=== PATIENT | female | born 1945 | race Caucasian/White ===

== ENCOUNTER 2017-02-12 14:18 | Emergency (ER) | payer MEDICARE, OTHER ==
[2017-02-12 15:25] LABS: BASOPHIL 0.8 % (0-2); HCT 40.4 % (37.0-47.0); HGB 13.5 g/dl (12.5-16.0); LYMPHOCYTE 33.3 % (15-48); MCH 28.9 pg (25.0-31.0); MCHC 33.4 g/dL (32.0-36.0); MCV 86.5 fL (78.0-100.0); MONOCYTE 7.8 % (0-12); NEUTROPHIL 53.1 % (41-80); PLT 173 K/uL (150-400); RBC 4.67 M/uL (4.20-5.40); RDW 13.8 % (11.5-14.0); WBC 6.5 K/uL (4.0-10.5)
[2017-02-12 16:11] LABS: INR 1.05 (0.9-1.2); PROTHROMBIN TIME 13.3 SECONDS (11.7-14.0); PTT 20.6 SECONDS (23.2-31.4)
[2017-02-12 16:28] LABS: ALBUMIN 3.7 g/dL (3.4-4.8); BILIRUBIN - TOTAL 0.3 mg/dL (0.1-1.0); CREATININE 0.9 mg/dL (0.5-1.0); GLOBULIN (CALCULATION) 2.7 g/dL (2.2-4.2); POTASSIUM 3.8 mmol/L (3.5-5.1); TOTAL PROTEIN 6.4 g/dL (6.4-8.3)
[2017-02-12 16:30] LABS: CKMB 2.92 ng/mL (0.97-4.94); MYOGLOBIN 44 ng/mL (26-65); TROPONIN T < 0.010 ng/mL
== END 2017-02-12 16:51 | disposition other institution (70) ==
LOC: FER 14:18
PROVIDERS: Internal Medicine
DX: G93.9 Disorder of brain, unspecified (principal); I50.9 Heart failure, unspecified; E11.22 Type 2 diabetes mellitus with diabetic chronic kidney disease; N18.9 Chronic kidney disease, unspecified; G89.29 Other chronic pain; J44.9 Chronic obstructive pulmonary disease, unspecified; K21.9 Gastro-esophageal reflux disease without esophagitis; Z88.0 Allergy status to penicillin; Z88.6 Allergy status to analgesic agent; Z91.018 Allergy to other foods; Z91.040 Latex allergy status
CPT/HCPCS: 36415; 70450; 71010; 80053; 80061; 82550; 82553; 83874; 84484; 85025; 85610; 85730; 93005; J1100

== ENCOUNTER 2020-11-03 12:41 | Inpatient (IN) | payer OTHER ==
[~2020-11-03 12:41] MED LIST: BUMEX1 MG PO; CALCIUM600 MG PO; CIPRO500 MG PO; COZAAR 25MG TAB25 MG PO; DITROPAN5 MG PO; DOK100 MG PO; FUROSEMIDE20 MG PO; HUMALOG KWIKPEN; K-DUR20 MEQ PO; KEFLEX250 MG PO; LANTUS **100 UNITS/ SC; LASIX20 MG PO; MIRALAX17 GM PO; NORVASC5 MG PO; NYSTATIN 30GM C30 GM TD; OXY-IR 5MG5 MG PO; PRAVACHOL20 MG PO; PREDNISONE2.5 MG PO; PREDNISONE5 MG PO; PREMARIN V45 GM/TUBE TOP; PREMARIN VG; TOPIRAMATE50 MG PO; ZANTAC150 MG PO; ZOFRAN8 MG PO
[2020-11-03 13:55] LABS: BASOPHIL 0.4 % (0-2); EOSINOPHIL 0.9 % (0-7); HCT 38.8 % (37.0-47.0); HGB 12.4 g/dl (12.5-16.0); LYMPHOCYTE 20.8 % (15-48); MCH 27.5 pg (25.0-31.0); MPV 11.9 fL (6.0-9.5); NEUTROPHIL 73.8 % (41-80); NRBC 0.4; PLT 186 K/uL (150-400); RBC 4.51 M/uL (4.20-5.40); RDW 14.8 % (11.5-14.0); WBC 8.2 K/uL (4.0-10.5)
[2020-11-03 14:01] LABS: BILIRUBIN NEGATIVE (NEGATIVE); BLOOD NEGATIVE Ery/uL (NEGATIVE); CLARITY CLEAR (CLEAR); COLOR YELLOW (YELLOW); GLUCOSE (U) 1+ mg/dL (NORMAL); LEUKOCYTES 1+ Leu/uL (NEGATIVE); NITRITE NEGATIVE (NEGATIVE); PROTEIN NEGATIVE (NEGATIVE); UROBILINOGEN 0.2 mg/dL (0.2-1.0); pH 5.5 (5.0-9.0)
[2020-11-03 14:04] LABS: BARBITURATES NEGATIVE (NEGATIVE); ECSTASY (MDMA) NEGATIVE (NEGATIVE); MARIJUANA (THC) NEGATIVE (NEGATIVE); METHADONE NEGATIVE (NEGATIVE); OPIATES NEGATIVE (NEGATIVE)
[2020-11-03 14:05] LABS: AMPHETAMINES NEGATIVE (NEGATIVE); OXYCODONE POSITIVE (NEGATIVE)
[2020-11-03 14:18] LABS: BACTERIA 4+
[2020-11-03 14:19] LABS: SQUAMOUS EPITHELIAL CELLS RARE; URINARY RBC RARE
[2020-11-03 14:36] LABS: ALBUMIN 3.7 g/dL (3.4-5.0); ALKALINE PHOSHATASE 97 U/L (46-116); ALT 16 U/L (14-59); AST 26 U/L (15-37); BILIRUBIN - TOTAL 0.5 mg/dL (0.2-1.0); BUN 31 mg/dL (7-18); BUN/CREAT RATIO (CALC) 15.1 RATIO; CHLORIDE 99 mmol/L (98-107); CO2 (BICARBONATE) 22 mmol/L (21-32); CREATININE 2.05 mg/dL (0.51-0.95); GLOBULIN (CALCULATION) 3.6 g/dL; GLUCOSE 282 mg/dL (74-106); POTASSIUM 3.7 mmol/L (3.5-5.1); TOTAL PROTEIN 7.3 g/dL (6.4-8.2)
[2020-11-03 15:21] LABS: INR 1.2 (0.9-1.2); PROTHROMBIN TIME 14.4 SECONDS (11.4-13.6); PTT 26.4 SECONDS (22.2-34.7)
--- NOTE | 2020-11-03 19:50 | NUR ---
PT ARRIVED TO UNIT PLACED ON SEED TESTER. UPON ASSESSMENT PT PUPILS WERE NON REACTIVE, PROPERTY CLAIMS MANAGER NOTIFIED AND STATED THIS IS DUE TO THE MEDICATIONS GRADY WERE RECEIVED IN THE ER
[2020-11-03] MEDS ORDERED: NORVASC5 MG PO (20:11)
[2020-11-03] MEDS ORDERED: LOSARTAN POTASS25 MG PO (20:12)
[2020-11-03] MEDS ORDERED: LANTUS SOL100 UNIT/1 IJ (20:13)
[2020-11-03] MEDS ORDERED: GLUCAGON EMERGEN1 MG IJ (20:14)
[2020-11-03] MEDS ORDERED: CALCIUM + D3 E1 EACH PO (20:15)
[2020-11-03] MEDS ORDERED: NYSTATIN 30GM C30 GM TOP (20:16)
[2020-11-03] MEDS ORDERED: DOK100 MG PO (20:16)
[2020-11-03] MEDS ORDERED: PRAVASTATIN SOD10 MG PO (20:17)
[2020-11-03] MEDS ORDERED: OXYCODONE HCL10 MG PO (20:18)
[2020-11-03] MEDS ORDERED: FAMOTIDINE40 MG PO (20:18)
[2020-11-03] MEDS ORDERED: CILOSTAZOL100 MG PO (20:19)
[2020-11-03] MEDS ORDERED: PRILOSEC20 MG PO (20:19)
[2020-11-03] MEDS ORDERED: HUMALOG MI100 UNIT/4 IJ (20:25)
--- NOTE | 2020-11-04 04:31 | NUR ---
UPON MORNING ASSESSMENT, PT PUPILS ARE FIED AND DO NOT REACT FOLLOW UP MANAGER NOTIFIED, WILL CONTINUE TO MONITOR
[2020-11-04 05:53] LABS: BASOPHIL 0.4 % (0-2); EOSINOPHIL 1.7 % (0-7); HCT 32.4 % (37.0-47.0); HGB 10.5 g/dl (12.5-16.0); LYMPHOCYTE 29.6 % (15-48); MCH 28.2 pg (25.0-31.0); MCHC 32.4 g/dL (32.0-36.0); MCV 87.1 fL (78.0-100.0); MONOCYTE 6.6 % (0-12); MPV 11.5 fL (6.0-9.5); NEUTROPHIL 61.5 % (41-80); NRBC 0; PLT 160 K/uL (150-400); RBC 3.72 M/uL (4.20-5.40); RDW 15.1 % (11.5-14.0); WBC 5.4 K/uL (4.0-10.5)
[2020-11-04 06:12] LABS: BUN/CREAT RATIO (CALC) 16.2 RATIO; CREATININE 1.79 mg/dL (0.51-0.95); POTASSIUM 3.3 mmol/L (3.5-5.1)
--- NOTE | 2020-11-04 06:19 | NUR ---
PT TROPONIN WAS 0.183, NOTIFIED WATCH ADJUSTER NO NEW ORDERS
--- NOTE | 2020-11-04 06:29 | NUR ---
PT HR JUMPED UP TO 145 TWICE AND CAME RIGHT BACK DOWN TO 90s, CALLED TO OCCUPATIONAL SAFETY AND HEALTH MANAGER- NO NEW ORDERS GIVEN. WILL CONTINUE TO MONITOR
--- NOTE | 2020-11-04 14:00 | NUR ---
PT RESPORTS SHE NEEDS HELP WIHT ADL'S THAT SHE LIVES WITH SPOUSE ; PLEASE ADVISE OF DISCHARGE NEEDS
[2020-11-05 06:26] LABS: BASOPHIL 0.4 % (0-2); EOSINOPHIL 3.7 % (0-7); HCT 38.5 % (37.0-47.0); LYMPHOCYTE 35.9 % (15-48); MCHC 31.2 g/dL (32.0-36.0); MCV 89.7 fL (78.0-100.0); MONOCYTE 7.5 % (0-12); MPV 11.4 fL (6.0-9.5); NEUTROPHIL 52.4 % (41-80); NRBC 0; RBC 4.29 M/uL (4.20-5.40); RDW 15.5 % (11.5-14.0); WBC 7.2 K/uL (4.0-10.5)
[2020-11-05 06:35] LABS: BUN/CREAT RATIO (CALC) 16.9 RATIO; CREATININE 1.3 mg/dL (0.51-0.95); POTASSIUM 3.8 mmol/L (3.5-5.1)
[2020-11-05 07:11] LABS: PLT 139 K/uL (150-400)
[2020-11-06 06:47] LABS: BASOPHIL 0.4 % (0-2); EOSINOPHIL 2.8 % (0-7); HCT 33.3 % (37.0-47.0); HGB 10.6 g/dl (12.5-16.0); LYMPHOCYTE 25.4 % (15-48); MCHC 31.8 g/dL (32.0-36.0); MCV 87.9 fL (78.0-100.0); MPV 11.6 fL (6.0-9.5); NEUTROPHIL 63.1 % (41-80); NRBC 0; PLT 153 K/uL (150-400); RBC 3.79 M/uL (4.20-5.40); RDW 15.1 % (11.5-14.0)
[2020-11-06 07:11] LABS: BUN/CREAT RATIO (CALC) 17.9 RATIO; CREATININE 1.06 mg/dL (0.51-0.95); POTASSIUM 3.2 mmol/L (3.5-5.1)
--- NOTE | 2020-11-06 17:10 | NUR ---
11/06/20 Ms. Aguila is . She lives with her son and "adopted son". He has a rw, 3in1, s. chair, and walk-in tub. A referral was made to [facility] per patient choice; affliation explained. Discharge is anticipated for 11/07/20.
[2020-11-07 06:03] LABS: BASOPHIL 0.5 % (0-2); EOSINOPHIL 5.3 % (0-7); HCT 32.9 % (37.0-47.0); HGB 10.5 g/dl (12.5-16.0); LYMPHOCYTE 28.4 % (15-48); MCH 28.2 pg (25.0-31.0); MCHC 31.9 g/dL (32.0-36.0); MCV 88.2 fL (78.0-100.0); MONOCYTE 6.9 % (0-12); MPV 11.9 fL (6.0-9.5); NEUTROPHIL 58.7 % (41-80); NRBC 0; PLT 150 K/uL (150-400); RBC 3.73 M/uL (4.20-5.40); RDW 15.2 % (11.5-14.0); WBC 6.6 K/uL (4.0-10.5)
[2020-11-07 06:19] LABS: BUN/CREAT RATIO (CALC) 18.4 RATIO; CREATININE 0.98 mg/dL (0.51-0.95); MAGNESIUM 1.9 mg/dL (1.8-2.4); PHOSPHORUS 1.4 mg/dL (2.6-4.7); POTASSIUM 4.4 mmol/L (3.5-5.1)
[2020-11-07] MEDS ORDERED: CEFDINIR300 MG PO (15:46)
[2020-11-07] MEDS ORDERED: SILVER SULFADIA85 GM TOP (15:46)
[2020-11-07] MEDS ORDERED: TOPROL XL 50 MG50 MG PO (15:46)
[2020-11-08] MEDS ORDERED: OXYCODONE HCL10 MG PO (18:58)
== END 2020-11-07 16:28 | disposition home health service (06) | DRG 871 ==
LOC: FER 12:41 → FTCU 16:23
PROVIDERS: Emergency Medicine; Internal Medicine; ADMIT Internal Medicine
DX: A41.51 Sepsis due to Escherichia coli [E. coli] (principal); G92 Toxic encephalopathy; I21.A1 Myocardial infarction type 2; N30.00 Acute cystitis without hematuria; N17.9 Acute kidney failure, unspecified; N18.30 Chronic kidney disease, stage 3 unspecified; E11.22 Type 2 diabetes mellitus with diabetic chronic kidney disease; I12.9 Hypertensive chronic kidney disease with stage 1 through stage 4 chronic kidney disease, or unspecified chronic kidney disease; I48.0 Paroxysmal atrial fibrillation; K59.00 Constipation, unspecified; Z20.822 Contact with and (suspected) exposure to COVID-19; K21.9 Gastro-esophageal reflux disease without esophagitis; Z88.0 Allergy status to penicillin; Z88.8 Allergy status to other drugs, medicaments and biological substances
CPT/HCPCS: 36415; 36600; 70450; 71250; 80048; 80053; 80305; 81001; 82140; 82550; 82803; 82962; 83036; 83605; 83735; 84100; 84145; 84484; 85025; 85610; 85730; 87040; 87076; 87088; 87186; 93005; 96372; G0480; J0692; J1630; J1650; J2060; J2405; J2543; J3370; J7030; J7050; U0002

== ENCOUNTER 2020-11-08 13:36 | Inpatient (IN) | payer OTHER ==
[~2020-11-08 13:36] MED LIST changes: +CALCIUM + D3 E1 EACH PO; +CEFDINIR300 MG PO; +CILOSTAZOL100 MG PO; +FAMOTIDINE40 MG PO; +GLUCAGON EMERGEN1 MG IJ; +HUMALOG MI100 UNIT/4 IJ; +LANTUS SOL100 UNIT/1 IJ; +LOSARTAN POTASS25 MG PO; +NYSTATIN 30GM C30 GM TOP; +OXYCODONE HCL10 MG PO; +PRAVASTATIN SOD10 MG PO; +PRILOSEC20 MG PO; +SILVER SULFADIA85 GM TOP; +TOPROL XL 50 MG50 MG PO
[2020-11-08 14:19] LABS: BASOPHIL 0.5 % (0-2); EOSINOPHIL 4.8 % (0-7); HCT 40.9 % (37.0-47.0); LYMPHOCYTE 19.6 % (15-48); MCH 28.6 pg (25.0-31.0); MCHC 31.8 g/dL (32.0-36.0); MCV 89.9 fL (78.0-100.0); MONOCYTE 6.4 % (0-12); MPV 11.3 fL (6.0-9.5); NEUTROPHIL 68.6 % (41-80); NRBC 0; PLT 198 K/uL (150-400); RBC 4.55 M/uL (4.20-5.40); RDW 15.4 % (11.5-14.0)
[2020-11-08 14:34] LABS: INR 0.99 (0.9-1.2); PROTHROMBIN TIME 12.4 SECONDS (11.4-13.6); PTT 26.4 SECONDS (22.2-34.7)
[2020-11-08 15:26] LABS: BILIRUBIN NEGATIVE (NEGATIVE); BLOOD TRACE-INTACT Ery/uL (NEGATIVE); CLARITY CLEAR (CLEAR); COLOR YELLOW (YELLOW); GLUCOSE (U) TRACE mg/dL (NORMAL); LEUKOCYTES NEGATIVE Leu/uL (NEGATIVE); NITRITE NEGATIVE (NEGATIVE); PROTEIN NEGATIVE (NEGATIVE); SPECIFIC GRAVITY 1.015 (1.001-1.030); UROBILINOGEN 0.2 mg/dL (0.2-1.0)
[2020-11-08 15:42] LABS: LACTIC ACID 1.6 mmol/L (0.4-1.9)
[2020-11-08 15:43] LABS: ALBUMIN 2.6 g/dL (3.4-5.0); BILIRUBIN - TOTAL 0.3 mg/dL (0.2-1.0); CREATININE 0.89 mg/dL (0.51-0.95); GLOBULIN (CALCULATION) 3.2 g/dL; MAGNESIUM 2.1 mg/dL (1.8-2.4); POTASSIUM 3.4 mmol/L (3.5-5.1); TOTAL PROTEIN 5.8 g/dL (6.4-8.2)
[2020-11-08 15:45] LABS: URINARY RBC RARE
[2020-11-08 15:57] LABS: PRO-BNP 2779 pg/mL (<125)
[2020-11-08] MEDS ORDERED: OXYCODONE HCL10 MG PO (18:58)
[2020-11-09 06:41] LABS: BASOPHIL 0.7 % (0-2); EOSINOPHIL 6.3 % (0-7); HCT 34.6 % (37.0-47.0); LYMPHOCYTE 31.1 % (15-48); MCHC 31.8 g/dL (32.0-36.0); MONOCYTE 7.7 % (0-12); MPV 11.6 fL (6.0-9.5); NEUTROPHIL 53.7 % (41-80); NRBC 0; PLT 178 K/uL (150-400); RBC 3.93 M/uL (4.20-5.40); RDW 15.2 % (11.5-14.0); WBC 5.6 K/uL (4.0-10.5)
[2020-11-09 07:38] LABS: ALBUMIN 2.4 g/dL (3.4-5.0); BILIRUBIN - TOTAL 0.2 mg/dL (0.2-1.0); BUN/CREAT RATIO (CALC) 20.8 RATIO; CREATININE 0.72 mg/dL (0.51-0.95); GLOBULIN (CALCULATION) 3.1 g/dL; MAGNESIUM 1.9 mg/dL (1.8-2.4); POTASSIUM 3.5 mmol/L (3.5-5.1); TOTAL PROTEIN 5.5 g/dL (6.4-8.2)
[2020-11-10 06:26] LABS: BASOPHIL 0.6 % (0-2); EOSINOPHIL 4.8 % (0-7); HCT 33.2 % (37.0-47.0); HGB 10.9 g/dl (12.5-16.0); LYMPHOCYTE 36.8 % (15-48); MCH 28.9 pg (25.0-31.0); MCHC 32.8 g/dL (32.0-36.0); MCV 88.1 fL (78.0-100.0); MONOCYTE 6.9 % (0-12); MPV 11.4 fL (6.0-9.5); NEUTROPHIL 50.7 % (41-80); NRBC 0; PLT 185 K/uL (150-400); RBC 3.77 M/uL (4.20-5.40); RDW 15.5 % (11.5-14.0); WBC 6.7 K/uL (4.0-10.5)
[2020-11-10 07:04] LABS: BUN/CREAT RATIO (CALC) 17.2 RATIO; CREATININE 0.93 mg/dL (0.51-0.95); MAGNESIUM 1.7 mg/dL (1.8-2.4); PHOSPHORUS 2.2 mg/dL (2.6-4.7); POTASSIUM 3.6 mmol/L (3.5-5.1)
--- NOTE | 2020-11-10 14:34 | NUR ---
11/10/20 Ms. Aguila lives at home with her 12 y/o adopted son. The 12 y/o is currently staying with Ms. Aguila's granddaughter. Her son, Rolando Aguila, lives across the street. Ms. Aguila's sister and her BF were living in the home. Ms. Aguila reports that her sister and the BF have moved and the locks have been changed on the door. _ Ms. Aguila has a rollator, rw which is too tall for her 5' stature, 3in1, and s. chair. - She is current with [facility] and wishes to continue with their services. Please call [facility] when patient is discharged at [phone]. - A rwferral was made to [facility] for [facility].
[2020-11-11 05:38] LABS: BASOPHIL 0.8 % (0-2); EOSINOPHIL 5.4 % (0-7); HCT 34.8 % (37.0-47.0); HGB 11.2 g/dl (12.5-16.0); LYMPHOCYTE 40.1 % (15-48); MCH 28.1 pg (25.0-31.0); MCHC 32.2 g/dL (32.0-36.0); MCV 87.4 fL (78.0-100.0); MONOCYTE 8.2 % (0-12); MPV 11.3 fL (6.0-9.5); NEUTROPHIL 45.4 % (41-80); NRBC 0; PLT 206 K/uL (150-400); RBC 3.98 M/uL (4.20-5.40); RDW 15.3 % (11.5-14.0); WBC 7.1 K/uL (4.0-10.5)
[2020-11-11 05:59] LABS: BUN/CREAT RATIO (CALC) 17.3 RATIO; CREATININE 1.04 mg/dL (0.51-0.95); PHOSPHORUS 2.7 mg/dL (2.6-4.7); POTASSIUM 3.9 mmol/L (3.5-5.1)
[2020-11-11] MEDS ORDERED: METFORMIN HCL500 MG PO (10:14)
[2020-11-11] MEDS ORDERED: DIGITEK125 MCG PO (10:14)
[2020-11-11] MEDS ORDERED: K-DUR20 MEQ PO (10:14)
[2020-11-11] MEDS ORDERED: LASIX20 MG PO (10:14)
== END 2020-11-11 14:00 | disposition home health service (06) | DRG 280 ==
LOC: FER 13:36 → FMS 16:38
PROVIDERS: Emergency Medicine; ADMIT Internal Medicine
DX: I48.0 Paroxysmal atrial fibrillation (principal); J81.0 Acute pulmonary edema; I21.A1 Myocardial infarction type 2; G93.41 Metabolic encephalopathy; J90 Pleural effusion, not elsewhere classified; I13.0 Hypertensive heart and chronic kidney disease with heart failure and stage 1 through stage 4 chronic kidney disease, or unspecified chronic kidney disease; I50.30 Unspecified diastolic (congestive) heart failure; E83.39 Other disorders of phosphorus metabolism; E11.43 Type 2 diabetes mellitus with diabetic autonomic (poly)neuropathy; K31.84 Gastroparesis; N18.30 Chronic kidney disease, stage 3 unspecified; E11.22 Type 2 diabetes mellitus with diabetic chronic kidney disease; I73.9 Peripheral vascular disease, unspecified; K21.9 Gastro-esophageal reflux disease without esophagitis; Z87.891 Personal history of nicotine dependence; Z88.0 Allergy status to penicillin; Z91.040 Latex allergy status; Z88.8 Allergy status to other drugs, medicaments and biological substances; Z91.018 Allergy to other foods; Z79.4 Long term (current) use of insulin; Z20.822 Contact with and (suspected) exposure to COVID-19
CPT/HCPCS: 36415; 36600; 70450; 71045; 71046; 71250; 80048; 80053; 80162; 81001; 82550; 82607; 82803; 82962; 83036; 83605; 83735; 83880; 84100; 84145; 84443; 84484; 85025; 85610; 85730; 87040; 87045; 87046; 87205; 93005; 94010; 94760; 94762; 97116; 97162; 97166; 97530-GP; 97535; J1160; J1650; J1940; J2405; J3475; J7040; J7050; U0002

== ENCOUNTER 2020-12-12 15:05 | Inpatient (IN) | payer OTHER ==
[~2020-12-12 15:05] MED LIST changes: +DIGITEK125 MCG PO; +METFORMIN HCL500 MG PO
[2020-12-12 18:25] LABS: BASOPHIL 0.7 % (0-2); EOSINOPHIL 4.2 % (0-7); HCT 34.6 % (37.0-47.0); HGB 10.6 g/dl (12.5-16.0); LYMPHOCYTE 26.7 % (15-48); MCH 28.5 pg (25.0-31.0); MCHC 30.6 g/dL (32.0-36.0); MPV 11.3 fL (6.0-9.5); NEUTROPHIL 58.1 % (41-80); NRBC 0; PLT 251 K/uL (150-400); RBC 3.72 M/uL (4.20-5.40); WBC 7.7 K/uL (4.0-10.5)
[2020-12-12 18:30] LABS: INR 1.09 (0.9-1.2); PROTHROMBIN TIME 13.4 SECONDS (11.4-13.6); PTT 25.9 SECONDS (22.2-34.7)
[2020-12-12 18:52] LABS: ALBUMIN 3.1 g/dL (3.4-5.0); BILIRUBIN - TOTAL 0.5 mg/dL (0.2-1.0); BUN/CREAT RATIO (CALC) 19.1 RATIO; C-REACTIVE PROTEIN 0.5 mg/dL (<=0.90); CREATININE 0.89 mg/dL (0.51-0.95); GLOBULIN (CALCULATION) 3.7 g/dL; MAGNESIUM 1.8 mg/dL (1.8-2.4); POTASSIUM 3.9 mmol/L (3.5-5.1); TOTAL PROTEIN 6.8 g/dL (6.4-8.2)
[2020-12-12] MEDS ORDERED: CILOSTAZOL100 MG PO (22:53)
[2020-12-12 22:55] LABS: BILIRUBIN NEGATIVE (NEGATIVE); BLOOD NEGATIVE Ery/uL (NEGATIVE); CLARITY CLEAR (CLEAR); COLOR YELLOW (YELLOW); GLUCOSE (U) NORMAL (NORMAL); LEUKOCYTES NEGATIVE Leu/uL (NEGATIVE); NITRITE NEGATIVE (NEGATIVE); PROTEIN NEGATIVE (NEGATIVE); SPECIFIC GRAVITY 1.015 (1.001-1.030); UROBILINOGEN 0.2 mg/dL (0.2-1.0); pH 7.5 (5.0-9.0)
[2020-12-12] MEDS ORDERED: LEXAPRO5 MG PO (22:56)
[2020-12-12] MEDS ORDERED: PREDNISONE 10MG10 MG PO (22:57)
--- NOTE | 2020-12-12 23:28 | NUR ---
PT GLUCOSE IS NOW 131, CALLED TO CHILD WELFARE CASEWORKER, WILL RE-CHECK IN 2 HRS
[2020-12-13 06:33] LABS: BASOPHIL 0.5 % (0-2); EOSINOPHIL 2.6 % (0-7); HCT 32.6 % (37.0-47.0); HGB 10.5 g/dl (12.5-16.0); LYMPHOCYTE 25.2 % (15-48); MCHC 32.2 g/dL (32.0-36.0); MCV 90.1 fL (78.0-100.0); MONOCYTE 9.5 % (0-12); MPV 10.4 fL (6.0-9.5); NEUTROPHIL 61.9 % (41-80); NRBC 0; PLT 232 K/uL (150-400); RBC 3.62 M/uL (4.20-5.40); RDW 14.6 % (11.5-14.0); WBC 6.5 K/uL (4.0-10.5)
[2020-12-13 06:58] LABS: ALBUMIN 2.8 g/dL (3.4-5.0); BILIRUBIN - TOTAL 0.6 mg/dL (0.2-1.0); BUN/CREAT RATIO (CALC) 16.2 RATIO; CREATININE 0.8 mg/dL (0.51-0.95); GLOBULIN (CALCULATION) 2.9 g/dL; MAGNESIUM 1.5 mg/dL (1.8-2.4); POTASSIUM 4.1 mmol/L (3.5-5.1); TOTAL PROTEIN 5.7 g/dL (6.4-8.2)
--- NOTE | 2020-12-13 14:29 | NUR ---
REFERRAL RECEIVED STATING NEEDS MORE HOME CARE VS. PLACEMENT A LAST RESORT. MET WITH PT AND HER SON LINDSAY CHRISTINA. PT. RESIDES WITH HER SON AND ALSO AN ADOPTED 12 YEAR OLD SON. PT. IS CURRENT WITH [facility] . SHE HAS A ROLLING WALKER. MAY NEED A 3/1 AND HOME O2. EXPLAINED TO SON THAT TO HAVE A PRIVATE SITTER OR AN AGENCY LIKE [employer] WOULD ALL BE PRIVATE PAY. ALSO, ADVISED PT. SON OF [facility] FOR THE AGED. BUT A REFERAL WOULD HAVE TO BE MADE AND THEY COULD POSSIBLY GET 20 HOURS A WEEK OF ASSISTANCE. ALSO, DISCUSSED THE POSSIBLITY OF GOING TO REHAB, BUT PT. SON DOES NOT WANT TO CONSIDER THAT OPTION AT THIS TIME. THE SON AND HIS MOTHER WILL DISCUSS OPTIONS. ADVISED SON AND PT. THAT [facility] WILL BE HELPING THEM I WILL BE ON LEAVE.
--- NOTE | 2020-12-13 14:39 | NUR ---
ADVISED NURSERUSSELL OF THE INFORMATION GIVEN FAMILY.
--- NOTE | 2020-12-13 14:56 | NUR ---
NOTIFICATION OF HOSPITALIZATION SENT TO [facility] THROUGH AVAILIY.
[2020-12-14 05:58] LABS: BASOPHIL 0.5 % (0-2); EOSINOPHIL 3.4 % (0-7); HCT 35.3 % (37.0-47.0); HGB 11.2 g/dl (12.5-16.0); LYMPHOCYTE 32.5 % (15-48); MCH 28.8 pg (25.0-31.0); MCHC 31.7 g/dL (32.0-36.0); MCV 90.7 fL (78.0-100.0); MONOCYTE 8.2 % (0-12); MPV 11.4 fL (6.0-9.5); NEUTROPHIL 55.1 % (41-80); NRBC 0; PLT 205 K/uL (150-400); RBC 3.89 M/uL (4.20-5.40); RDW 14.6 % (11.5-14.0); WBC 7.8 K/uL (4.0-10.5)
[2020-12-14 06:08] LABS: BUN/CREAT RATIO (CALC) 14.8 RATIO; CREATININE 1.08 mg/dL (0.51-0.95); MAGNESIUM 1.8 mg/dL (1.8-2.4); POTASSIUM 4.5 mmol/L (3.5-5.1)
[2020-12-15 06:38] LABS: BASOPHIL 0.5 % (0-2); EOSINOPHIL 3.4 % (0-7); HCT 37.6 % (37.0-47.0); HGB 12.2 g/dl (12.5-16.0); LYMPHOCYTE 18.4 % (15-48); MCH 29.1 pg (25.0-31.0); MCHC 32.4 g/dL (32.0-36.0); MCV 89.7 fL (78.0-100.0); MONOCYTE 6.3 % (0-12); MPV 11.2 fL (6.0-9.5); NEUTROPHIL 70.9 % (41-80); NRBC 0; PLT 251 K/uL (150-400); RBC 4.19 M/uL (4.20-5.40); RDW 14.3 % (11.5-14.0); WBC 11.4 K/uL (4.0-10.5)
[2020-12-15 06:54] LABS: BUN/CREAT RATIO (CALC) 20.2 RATIO; CREATININE 0.99 mg/dL (0.51-0.95)
--- NOTE | 2020-12-15 14:38 | NUR ---
12/15 Discharge is anticipated for . Please notify [facility] at [phone]. )2 has been ordered from [facility].
[2020-12-16] MEDS ORDERED: LASIX40 MG PO (10:35)
--- NOTE | 2020-12-16 12:31 | NUR ---
PT DISCHARGED WITH SON VIA WHEELCHAIR. SON IS POA. PT IS RECIEVING HOME HEALTH. RN ATTEMPTED TO NOTIFY HOME HEALTH BUT LEFT MESSAGE. TELE REMOVED, IV DC'D.
== END 2020-12-16 13:00 | disposition home health service (06) | DRG 291 ==
LOC: FER 15:05 → FICU 21:11 → FTCU 21:11 → FICU 21:11 → FTCU 12-14 08:57
PROVIDERS: Emergency Medicine; Nurse Practitioner; Nurse Practitioner Family; ADMIT Internal Medicine
DX: I13.0 Hypertensive heart and chronic kidney disease with heart failure and stage 1 through stage 4 chronic kidney disease, or unspecified chronic kidney disease (principal); I50.33 Acute on chronic diastolic (congestive) heart failure; J18.9 Pneumonia, unspecified organism; E11.51 Type 2 diabetes mellitus with diabetic peripheral angiopathy without gangrene; E11.43 Type 2 diabetes mellitus with diabetic autonomic (poly)neuropathy; Z20.822 Contact with and (suspected) exposure to COVID-19; K31.84 Gastroparesis; N18.30 Chronic kidney disease, stage 3 unspecified; I48.0 Paroxysmal atrial fibrillation; G47.33 Obstructive sleep apnea (adult) (pediatric); I25.10 Atherosclerotic heart disease of native coronary artery without angina pectoris; K21.9 Gastro-esophageal reflux disease without esophagitis; I27.20 Pulmonary hypertension, unspecified; K59.00 Constipation, unspecified; Z90.49 Acquired absence of other specified parts of digestive tract; Z98.51 Tubal ligation status; Z88.0 Allergy status to penicillin; Z88.1 Allergy status to other antibiotic agents; Z88.8 Allergy status to other drugs, medicaments and biological substances; Z91.040 Latex allergy status; Z79.4 Long term (current) use of insulin; Z79.899 Other long term (current) drug therapy; Z87.891 Personal history of nicotine dependence; Z98.41 Cataract extraction status, right eye; Z98.42 Cataract extraction status, left eye; Z87.440 Personal history of urinary (tract) infections; I25.2 Old myocardial infarction
CPT/HCPCS: 36415; 36600; 71045; 80048; 80053; 80162; 81003; 82728; 82803; 82962; 83615; 83735; 83880; 84145; 84443; 84484; 85025; 85610; 85730; 86140; 93005; 94010; 94760; 94762; 97110; 97162; 97166; 97530; 97530-GP; 97535; J0360; J0456; J0696; J0780; J1650; J1940; J1956; J2405; J3475; J7050; U0002

== ENCOUNTER 2022-01-23 17:48 | Inpatient (IN) | payer OTHER ==
[~2022-01-23] VITALS: Ht 154.9 cm; Wt 61.7 kg
[~2022-01-23 17:48] MED LIST changes: +LASIX40 MG PO; +LEVAQUIN750 MG PO; +LEXAPRO5 MG PO; +PREDNISONE 10MG10 MG PO; +VIBRAMYCIN100 MG PO
[2022-01-23 19:57] LABS: BASOPHIL 0.7 % (0-2); EOSINOPHIL 3.6 % (0-7); HCT 43.2 % (37.0-47.0); HGB 13.4 g/dl (12.5-16.0); MCH 27.8 pg (25.0-31.0); MCV 89.6 fL (78.0-100.0); MONOCYTE 6.3 % (0-12); MPV 11.1 fL (6.0-9.5); NEUTROPHIL 70.2 % (41-80); NRBC 0; PLT 199 K/uL (150-400); RBC 4.82 M/uL (4.20-5.40); RDW 13.2 % (11.5-14.0); WBC 10.3 K/uL (4.0-10.5)
[2022-01-23 20:15] LABS: ALBUMIN 3.6 g/dL (3.4-5.0); BILIRUBIN - TOTAL 0.4 mg/dL (0.2-1.0); BUN/CREAT RATIO (CALC) 25.8 RATIO; CREATININE 1.32 mg/dL (0.51-0.95); GLOBULIN (CALCULATION) 4.3 g/dL; TOTAL PROTEIN 7.9 g/dL (6.4-8.2)
[2022-01-23 20:18] LABS: LACTIC ACID 1.6 mmol/L (0.4-1.9)
[2022-01-23 20:37] LABS: BILIRUBIN NEGATIVE (NEGATIVE); BLOOD TRACE-INTACT Ery/uL (NEGATIVE); COLOR YELLOW (YELLOW); GLUCOSE (U) TRACE mg/dL (NORMAL); LEUKOCYTES 3+ Leu/uL (NEGATIVE); NITRITE NEGATIVE (NEGATIVE); PROTEIN 2+ mg/dL (NEGATIVE); UROBILINOGEN 0.2 mg/dL (0.2-1.0)
[2022-01-23 20:52] LABS: CLARITY HAZY (CLEAR)
[2022-01-23 20:54] LABS: BACTERIA 3+; URINARY WBC 20-50
[2022-01-24 08:07] LABS: BUN/CREAT RATIO (CALC) 32.1 RATIO; CREATININE 1.37 mg/dL (0.51-0.95); POTASSIUM 5.4 mmol/L (3.5-5.1)
[2022-01-24 08:40] LABS: BASOPHIL 0.5 % (0-2); EOSINOPHIL 0.3 % (0-7); HCT 38.9 % (37.0-47.0); HGB 11.9 g/dl (12.5-16.0); LYMPHOCYTE 11.7 % (15-48); MCH 27.7 pg (25.0-31.0); MCHC 30.6 g/dL (32.0-36.0); MCV 90.7 fL (78.0-100.0); MONOCYTE 2.3 % (0-12); MPV 11.9 fL (6.0-9.5); NEUTROPHIL 84.9 % (41-80); NRBC 0; PLT 239 K/uL (150-400); RBC 4.29 M/uL (4.20-5.40); RDW 13.3 % (11.5-14.0); WBC 11.4 K/uL (4.0-10.5)
--- NOTE | 2022-01-24 11:12 | NUR ---
RN REPORTED ELEVATED BP TO DR. COVARRUBIAS. ORDERS RECEIVED FOR IV LABATELOL. ONCE MEDICATION ARRIVED TO FLOOR RN RECHECKED BP WHICH HAD COME DOWN TO 128/55. MEDICATION NOT ADMINISTERED. NOTIFIED.
[2022-01-24 13:59] LABS: BUN/CREAT RATIO (CALC) 30.4 RATIO; CREATININE 1.58 mg/dL (0.51-0.95); POTASSIUM 4.5 mmol/L (3.5-5.1)
[2022-01-25 05:54] LABS: BASOPHIL 0.3 % (0-2); EOSINOPHIL 0.3 % (0-7); HCT 38.4 % (37.0-47.0); LYMPHOCYTE 14.9 % (15-48); MCH 28.1 pg (25.0-31.0); MCHC 31.3 g/dL (32.0-36.0); MCV 89.9 fL (78.0-100.0); MONOCYTE 5.3 % (0-12); MPV 11.1 fL (6.0-9.5); NEUTROPHIL 78.7 % (41-80); NRBC 0; PLT 219 K/uL (150-400); RBC 4.27 M/uL (4.20-5.40); RDW 13.6 % (11.5-14.0); WBC 17.7 K/uL (4.0-10.5)
[2022-01-25 06:17] LABS: BUN/CREAT RATIO (CALC) 32.7 RATIO; CREATININE 1.5 mg/dL (0.51-0.95); POTASSIUM 4.4 mmol/L (3.5-5.1)
--- NOTE | 2022-01-25 15:04 | NUR ---
PT WILL RETURN TO [facility] UPON DISCHARGE. SHE WILL NEED A NEW COVID TEST.
[2022-01-26 06:31] LABS: BASOPHIL 0.5 % (0-2); EOSINOPHIL 3.6 % (0-7); HCT 39.9 % (37.0-47.0); HGB 12.4 g/dl (12.5-16.0); LYMPHOCYTE 28.3 % (15-48); MCH 27.9 pg (25.0-31.0); MCHC 31.1 g/dL (32.0-36.0); MCV 89.7 fL (78.0-100.0); MONOCYTE 7.7 % (0-12); MPV 11.1 fL (6.0-9.5); NEUTROPHIL 59.6 % (41-80); NRBC 0; PLT 204 K/uL (150-400); RBC 4.45 M/uL (4.20-5.40); RDW 13.7 % (11.5-14.0); WBC 11.7 K/uL (4.0-10.5)
[2022-01-26 06:56] LABS: CREATININE 0.98 mg/dL (0.51-0.95); POTASSIUM 3.7 mmol/L (3.5-5.1)
[2022-01-27 05:49] LABS: BASOPHIL 0.6 % (0-2); EOSINOPHIL 3.2 % (0-7); HCT 41.7 % (37.0-47.0); HGB 12.9 g/dl (12.5-16.0); LYMPHOCYTE 25.6 % (15-48); MCH 27.9 pg (25.0-31.0); MCHC 30.9 g/dL (32.0-36.0); MCV 90.3 fL (78.0-100.0); MONOCYTE 6.4 % (0-12); MPV 11.2 fL (6.0-9.5); NEUTROPHIL 63.9 % (41-80); NRBC 0; PLT 210 K/uL (150-400); RBC 4.62 M/uL (4.20-5.40); RDW 13.6 % (11.5-14.0); WBC 12.3 K/uL (4.0-10.5)
[2022-01-27 06:09] LABS: BUN/CREAT RATIO (CALC) 26.3 RATIO; CREATININE 0.95 mg/dL (0.51-0.95); POTASSIUM 4.3 mmol/L (3.5-5.1)
[2022-01-27] MEDS ORDERED: OXYCODONE HCL10 MG PO (11:18)
== END 2022-01-27 11:49 | DRG 682 ==
LOC: FER 17:48 → FMS 21:50
PROVIDERS: Emergency Medicine; Nurse Practitioner Acute Care; ADMIT Family Medicine
PROC: 8E0ZXY6 Isolation (ICD-10-PCS; principal; 2022-01-24)
DX: N17.9 Acute kidney failure, unspecified (principal); G92.8 Other toxic encephalopathy; U07.1 COVID-19; N30.00 Acute cystitis without hematuria; I13.0 Hypertensive heart and chronic kidney disease with heart failure and stage 1 through stage 4 chronic kidney disease, or unspecified chronic kidney disease; I50.32 Chronic diastolic (congestive) heart failure; E87.5 Hyperkalemia; Z66 Do not resuscitate; B96.20 Unspecified Escherichia coli [E. coli] as the cause of diseases classified elsewhere; F03.90 Unspecified dementia, unspecified severity, without behavioral disturbance, psychotic disturbance, mood disturbance, and anxiety; E11.22 Type 2 diabetes mellitus with diabetic chronic kidney disease; I69.392 Facial weakness following cerebral infarction; Z28.310 Unvaccinated for COVID-19; N18.30 Chronic kidney disease, stage 3 unspecified; E11.65 Type 2 diabetes mellitus with hyperglycemia; E11.43 Type 2 diabetes mellitus with diabetic autonomic (poly)neuropathy; K31.84 Gastroparesis; I48.0 Paroxysmal atrial fibrillation; M19.90 Unspecified osteoarthritis, unspecified site; K21.9 Gastro-esophageal reflux disease without esophagitis; E11.40 Type 2 diabetes mellitus with diabetic neuropathy, unspecified; E11.51 Type 2 diabetes mellitus with diabetic peripheral angiopathy without gangrene; E11.649 Type 2 diabetes mellitus with hypoglycemia without coma; Z87.891 Personal history of nicotine dependence; I25.2 Old myocardial infarction; Z87.440 Personal history of urinary (tract) infections; Z98.890 Other specified postprocedural states; Z92.3 Personal history of irradiation; Z90.49 Acquired absence of other specified parts of digestive tract; Z79.4 Long term (current) use of insulin; Z79.899 Other long term (current) drug therapy; Z88.0 Allergy status to penicillin; Z88.6 Allergy status to analgesic agent; Z91.040 Latex allergy status; Z91.018 Allergy to other foods
CPT/HCPCS: 36415; 36600; 70450; 70551; 71045; 80048; 80053; 81001; 82803; 83036; 83605; 84484; 85025; 87040; 87076; 87088; 87186; 92526; 93005; C9113; J0696; J1650; J1815; J7030; U0002